=== PATIENT | male | born 1960 | race American Indian/Alaskan Native ===

== ENCOUNTER 2016-07-31 21:12 | Emergency (ER) | payer SELFPAY ==
[2016-07-31 22:08] LABS: Basophils % (Auto) 0.3 % (0.0-1.8); Eosinophils % (Auto) 0.2 % (0.0-4.3); Hemoglobin 12.7 gm/dl (11.8-15.2); Mean Corpuscular HGB Conc 34 % (32-34); Mean Corpuscular Hemoglobin 32 pg (28-32); Mean Corpuscular Volume 95 fl (84-94); Platelet Count 189 K/mm3 (140-440); Red Blood Count 3.91 M/mm3 (3.65-5.03); Red Cell Distribution Width 14.4 % (13.2-15.2)
--- NOTE | 2016-07-31 22:10 | Emergency Department Report ---
Chief Complaint: Abdominal Pain Stated Complaint: ABD PAINS Time Seen by Provider: 07/31/16 22:05 - HPI History of Present Illness: 35-year-old male presents today with upper abdominal pain since Wednesday morning. Positive for nausea and vomiting. Positive for subjective fever. Denies history of similar symptoms. Denies chest pain or shortness of breath. Denies history of gallbladder stones. - ROS Review of Systems: Per HPI - Exam Vital Signs: Vital Signs 07/31/16 21:45 Temperature 98.6 F Pulse Rate 80 Respiratory 22 Rate Blood Pressure 165/106 [Right] O2 Sat by Pulse 100 Oximetry Physical Exam: General: 55-year-old male in no acute distress. Well-developed, well-nourished. CV: Regular rate and rhythm. Lungs: Clear to auscultation bilaterally. Abdomen: Tenderness to palpation of the epigastric region. Positive for minimal guarding. No rebound tenderness. Normal bowel sounds. MSE screening note: Focused history and physical exam performed. Due to findings the following was ordered: ED Disposition for MSE Condition: Stable
[2016-07-31 22:28] LABS: Alanine Aminotransferase 28 units/L (7-56); Albumin 4.1 g/dL (3.9-5); Albumin/Globulin Ratio 1.2 %; Alkaline Phosphatase 82 units/L (35-129); Anion Gap 18 mmol/L; BUN/Creatinine Ratio 11.11; Bilirubin,Total 0.6 mg/dL (0.1-1.2); Blood Urea Nitrogen 10 mg/dL (9-20); Calcium 8.9 mg/dL (8.4-10.2); Carbon Dioxide 25 mmol/L (22-30); Chloride 99.9 mmol/L (98-107); Glucose 96 mg/dL (75-100); Lipase 36 units/L (13-60); Potassium 5.1 mmol/L (3.6-5.0); Sodium 138 mmol/L (137-145); Total Protein 7.6 g/dL (6.3-8.2)
[2016-08-01 01:37] LABS: Bilirubin,Urine NEG (Negative); Blood,Urine NEG (Negative); Ketones,Urine TR mg/dL (Negative); Leukocyte Esterase,Urine NEG (Negative); Mucus,Urine FEW /HPF; Nitrite,Urine NEG (Negative); Protein,Urine <15 mg/dL mg/dL (Negative); Urobilinogen,Urine < 2.0 mg/dL (<2.0)
[2016-08-01] MEDS ORDERED: TYLENOL PO ONE (01:46)
[2016-08-01] MEDS ORDERED: MORPHINE IM ONE (04:31)
[2016-08-01] MEDS ORDERED: MORPHINE ONE (06:34)
[2016-08-01] MEDS ORDERED: PROTONIX IV ONE (06:46)
[2016-08-01] MEDS ORDERED: MORPHINE IV ONE (06:46)
[2016-08-01] MEDS ORDERED: ZOFRAN IV ONE (06:46)
[2016-08-01] MEDS ORDERED: NACL 0.9% 1000 ML 1,000 ML IV ONE (06:47)
[2016-08-01] MEDS ORDERED: NACL ONE (07:10)
--- NOTE | 2016-08-01 07:22 | Emergency Department Report ---
ED Abdominal Pain HPI - General Chief Complaint: Abdominal Pain Stated Complaint: ABD PAINS Time Seen by Provider: 07/31/16 22:05 Source: patient Mode of arrival: Ambulatory Limitations: No Limitations - History of Present Illness Initial Comments: 55 year old male with a past medical history of avascular necrosis and previous hip surgery presents to the hospital complains of upper abdominal pain since yesterday a.m. Epigastric pain described as intermittent and aching. Rated 6/ 10 in intensity currently but was 10/10 upon initial presentation. Positive associated nausea vomiting or by mouth intolerance. No reports of diarrhea, melena, or hematochezia. Patient complains that he did have some red vomit after drinking a red drink but red vomitus continued to the next day. No reports of documented fever, sick contacts or recent travel. Patient's blood pressure noted to be elevated upon presentation. Patient states he was in severe pain at the time he denies a history of hypertension. Patient chronically takes oxycodone 15mg and tramadol 50 mg for hip pain. Patient drinks wine on occasion and denies daily alcohol use. Severity scale (0 -10): 5 - Related Data Previous Rx's Medication Instructions Recorded Last Taken Type Mag Hydrox/Al Hydrox/Simeth 20 ml PO QID PRN #1 bottle 08/01/16 Unknown Rx [Maalox Advanced Suspension] Omeprazole Magnesium [PriLOSEC Otc] 20 mg PO QDAY #30 tablet. 08/01/16 Unknown Rx Ondansetron [Zofran Odt] 4 mg PO Q8HR #20 tab.rapdis 08/01/16 Unknown Rx Oxycodone HCl [Roxicodone TAB] 15 mg PO Q6H PRN #14 tablet 08/01/16 Unknown Rx traMADol [Ultram 50 MG tab] 50 mg PO Q6HR PRN #14 tablet 08/01/16 Unknown Rx Allergies Allergy/AdvReac Type Severity Reaction Status Date / Time No Known Allergies Allergy Verified 07/31/16 21:45 ED Review of Systems ROS: Stated complaint: ABD PAINS Other details as noted in HPI Comment: All other systems reviewed and negative Other: Constitutional: No fevers chills Eyes: No eye pain visual changes ENT: No ear pain or throat pain Neck: Denies pain Respiratory: Denies cough wheezing shortness of breath Cardiovascular: Denies chest pain, palpitations, syncope GI: as per hpi : Denies dysuria, Musculoskeletal: Denies back pain Skin: Denies rash, lesions, erythema Neurologic: Denies headache, numbness, weakness Psychiatric: Denies suicidal ideation, hallucinations ED Past Medical Hx - Past Medical History Previous Medical History?: Yes Additional medical history: Vascular necrosis - Surgical History Past Surgical History?: Yes Additional Surgical History: Bilateral Hip Replacement - Social History Smoking Status: Never Smoker Substance Use Type: None - Medications Home Medications: Home Medications Medication Instructions Recorded Confirmed Last Taken Type Mag Hydrox/Al Hydrox/Simeth 20 ml PO QID PRN #1 bottle 08/01/16 Unknown Rx [Maalox Advanced Suspension] Omeprazole Magnesium [PriLOSEC Otc] 20 mg PO QDAY #30 tablet.dr 08/01/16 Unknown Rx Ondansetron [Zofran Odt] 4 mg PO Q8HR #20 tab.rapdis 08/01/16 Unknown Rx Oxycodone HCl [Roxicodone TAB] 15 mg PO Q6H PRN #14 tablet 08/01/16 Unknown Rx traMADol [Ultram 50 MG tab] 50 mg PO Q6HR PRN #14 tablet 08/01/16 Unknown Rx ED Physical Exam - General Limitations: No Limitations - Other Other exam information: General: No limitations, patient is alert in no acute distress Head exam: Atraumatic, normocephalic Eyes exam: Normal appearance ENT: Moist mucous membrane, normal oropharynx Neck exam: Normal inspection, full range of motion Respiratory exam: Clear to auscultation bilateral, no wheezes, rales, crackles Cardiovascular: Normal rate and rhythm, normal heart sounds Abdomen: Soft, nondistended, mild right upper quadrant tenderness but significant epigastric tenderness, with normal bowel sounds, no rebound, or guarding rectal: guaic pos brown stool. no gross blood or melena Extremity: Full range of motion normal inspection no deformity Back: Normal Inspection, full range of motion, no tenderness Neurologic: Alert, oriented x3, cranial nerves intact, no motor or sensory deficit Psychiatric: normal affect, normal mood Skin: Warm, dry, intact ED Course Vital Signs 07/31/16 08/01/16 08/01/16 21:45 02:46 04:45 Temperature 98.6 F Pulse Rate 80 Respiratory 22 16 20 Rate Blood Pressure 165/106 [Right] O2 Sat by Pulse 100 Oximetry 08/01/16 08/01/16 08/01/16 07:17 07:30 07:47 Temperature Pulse Rate 74 Respiratory 16 16 16 Rate Blood Pressure 136/81 [Right] O2 Sat by Pulse 100 Oximetry 08/01/16 08/01/16 08:22 10:40 Temperature Pulse Rate Respiratory 16 16 Rate Blood Pressure [Right] O2 Sat by Pulse 100 Oximetry - Reevaluation(s) Reevaluation #1: 08/01/16 10:23 Blood pressure corrected without receiving blood pressure medication. Pain somewhat improved with morphine, Protonix, and Zofran. Nausea has resolved. Patient complained of persistent pain and worsened after by mouth intake of crackles. Additional Dilaudid ordered since patient likely has a narcotic tolerance - Consultations Consultation #1: 08/01/16 19:[address] Caldwell with GI regarding CT findings. Patient may follow -up as outpatient ED Medical Decision Making - Lab Data Result diagrams: 07/31/16 21:56 07/31/16 21:56 Lab Results 07/31/16 07/31/16 07/31/16 Range/Units 00:30 21:56 21:56 WBC 7.0 (4.5-11.0) K/mm3 RBC 3.91 (3.65-5.03) M/mm3 Hgb 12.7 (11.8-15.2) gm/dl Hct 37.0 (35.5-45.6) % MCV 95 H (84-94) fl MCH 32 (28-32) pg MCHC 34 (32-34) % RDW 14.4 (13.2-15.2) % Plt Count 189 (140-440) K/mm3 Lymph % (Auto) 13.5 (13.4-35.0) % Price % (Auto) 10.2 H (0.0-7.3) % Eos % (Auto) 0.2 (0.0-4.3) % Baso % (Auto) 0.3 (0.0-1.8) % Lymph # 0.9 L (1.2-5.4) K/mm3 Price # 0.7 (0.0-0.8) K/mm3 Eos # 0.0 (0.0-0.4) K/mm3 Baso # 0.0 (0.0-0.1) K/mm3 Seg Neutrophils % 75.8 H (40.0-70.0) % Seg Neutrophils # 5.3 (1.8-7.7) K/mm3 Sodium 138 (137-145) mmol/L Potassium 5.1 H (3.6-5.0) mmol/L Chloride 99.9 (98-107) mmol/L Carbon Dioxide 25 (22-30) mmol/L Anion Gap 18 mmol/L BUN 10 (9-20) mg/dL Creatinine 0.9 (0.8-1.5) mg/dL Estimated GFR > 60 ml/min BUN/Creatinine Ratio 11.11 % Glucose 96 (75-100) mg/dL Calcium 8.9 (8.4-10.2) mg/dL Total Bilirubin 0.6 (0.1-1.2) mg/dL AST 31 (5-40) units/L ALT 28 (7-56) units/L Alkaline Phosphatase 82 (35-129) units/L Total Protein 7.6 (6.3-8.2) g/dL Albumin 4.1 (3.9-5) g/dL Albumin/Globulin Ratio 1.2 % Amylase (27-131) units/L Lipase 36 (13-60) units/L Urine Color Yellow (Yellow) Urine Turbidity Clear (Clear) Urine pH 5.0 (5.0-7.0) Ur Specific [place] 1.014 (1.003-1.030) Urine Protein <15 mg/dl (Negative) mg/dL Urine Glucose (UA) Neg (Negative) mg/dL Urine Ketones Tr (Negative) mg/dL Urine Blood Neg (Negative) Urine Nitrite Neg (Negative) Urine Bilirubin Neg (Negative) Urine Urobilinogen < 2.0 (<2.0) mg/dL Ur Leukocyte Esterase Neg (Negative) Urine WBC (Auto) 2.0 (0.0-6.0) /HPF Urine RBC (Auto) 4.0 (0.0-6.0) /HPF U Epithel Cells (Auto) < 1.0 (0-13.0) /HPF Urine Mucus Few /HPF 07/31/16 Range/Units 21:56 WBC (4.5-11.0) K/mm3 RBC (3.65-5.03) M/mm3 Hgb (11.8-15.2) gm/dl Hct (35.5-45.6) % MCV (84-94) fl MCH (28-32) pg MCHC (32-34) % RDW (13.2-15.2) % Plt Count (140-440) K/mm3 Lymph % (Auto) (13.4-35.0) % Price % (Auto) (0.0-7.3) % Eos % (Auto) (0.0-4.3) % Baso % (Auto) (0.0-1.8) % Lymph # (1.2-5.4) K/mm3 Price # (0.0-0.8) K/mm3 Eos # (0.0-0.4) K/mm3 Baso # (0.0-0.1) K/mm3 Seg Neutrophils % (40.0-70.0) % Seg Neutrophils # (1.8-7.7) K/mm3 Sodium (137-145) mmol/L Potassium (3.6-5.0) mmol/L Chloride (98-107) mmol/L Carbon Dioxide (22-30) mmol/L Anion Gap mmol/L BUN (9-20) mg/dL Creatinine (0.8-1.5) mg/dL Estimated GFR ml/min BUN/Creatinine Ratio % Glucose (75-100) mg/dL Calcium (8.4-10.2) mg/dL Total Bilirubin (0.1-1.2) mg/dL AST (5-40) units/L ALT (7-56) units/L Alkaline Phosphatase (35-129) units/L Total Protein (6.3-8.2) g/dL Albumin (3.9-5) g/dL Albumin/Globulin Ratio % Amylase 105 (27-131) units/L Lipase (13-60) units/L Urine Color (Yellow) Urine Turbidity (Clear) Urine pH (5.0-7.0) Ur Specific [place] (1.003-1.030) Urine Protein (Negative) mg/dL Urine Glucose (UA) (Negative) mg/dL Urine Ketones (Negative) mg/dL Urine Blood (Negative) Urine Nitrite (Negative) Urine Bilirubin (Negative) Urine Urobilinogen (<2.0) mg/dL Ur Leukocyte Esterase (Negative) Urine WBC (Auto) (0.0-6.0) /HPF Urine RBC (Auto) (0.0-6.0) /HPF U Epithel Cells (Auto) (0-13.0) /HPF Urine Mucus /HPF - Radiology Data Radiology results: report reviewed (CT abdomen and pelvis IV contrast: U acute pathology. Question of funds at the pancreatic head. Slight thickening of the distal descending duodenum.) - Medical Decision Making Pain improved at the medicines in the ED the patient feels well enough to go home. Patient requesting a refill on his oxycodone and tramadol since he will run out prior to this pain management follow-up on the - Differential Diagnosis gastritis, cholecystitis, pancreatitis, hepatitis Critical Care Time: No Critical care attestation.: If time is entered above; I have spent that time in minutes in the direct care of this critically ill patient, excluding procedure time. ED Disposition Clinical Impression: Gastritis Qualifiers: Gastritis type: unspecified gastritis Vomiting Qualifiers: Vomiting type: unspecified Vomiting Intractability: non-intractable Nausea presence: with nausea Qualified Code(s): R11.2 - Nausea with vomiting, unspecified Disposition: DISCHARGED TO HOME OR SELFCARE Is pt being admited?: No Does the pt Need Aspirin: No Condition: Stable Instructions: Gastritis (ED), Acute Nausea and Vomiting (ED) Additional Instructions: Follow-up with the GI doctor and your primary care doctor. There were several incidental findings identified on the CAT scan any further workup and evaluation. You had been provided a copy of the CAT scan for your follow-up doctors to review. Take the medication as prescribed. Return if symptoms worsen despite current medication treatment. Prescriptions: Mag Hydrox/Al Hydrox/Simeth [Maalox Advanced Suspension] 20 ml PO QID PRN #1 bottle PRN Reason: Indigestion Omeprazole Magnesium [PriLOSEC Otc] 20 mg PO QDAY #30 tablet. Ondansetron [Zofran Odt] 4 mg PO Q8HR #20 tab.rapdis Oxycodone HCl [Roxicodone TAB] 15 mg PO Q6H PRN #14 tablet PRN Reason: Pain traMADol [Ultram 50 MG tab] 50 mg PO Q6HR PRN #14 tablet PRN Reason: Pain Referrals: MARCELLUS NOBLE MD [Primary Care Provider] - 2-3 Days KELSEA CALDWELL MD [Staff Physician] - 2-3 Days Time of Disposition: 11:47
--- NOTE | 2016-08-01 08:49 | Cat Scan Report ---
FINAL REPORT PROCEDURE: CT ABDOMEN PELVIS W CON TECHNIQUE: Computerized axial tomography of the abdomen and pelvis was performed after the IV injection of iodinated nonionic contrast. HISTORY: epigastric pain, vomiting COMPARISON: No prior studies are available for comparison. FINDINGS: Visualized lower thorax: No significant abnormality on limited evaluation with motion artifact present. Liver: Normal size and attenuation. Spleen: Normal size and attenuation. Gallbladder and biliary system: Possible sludge material or gallstone debris versus artifact. Consider gallbladder ultrasound. Coronal 44. Pancreas: Pancreatic duct measuring up to 3 millimeters. Slight heterogeneous appearance of the pancreatic head versus artifact axial 61 and 62 in the 1 x 1 centimeter range, indeterminate and does not appear to persist on delayed sequences. Pancreatic head measures 2.6 by 3.6 x 3.9 centimeters. Followup and further workup may be warranted. Although not favored pancreatic head mass not excludable. Pancreatic head infiltrative pathology not excludable at this time. Short-term Followup and further workup suggested as indicated Adrenals: Normal. Kidneys: Low attenuated cysts in the sub centimeter range each kidney suspected which can be confirmed by ultrasound if warranted. Contrast fills the collecting systems and visualized ureters with probable bilateral ureteral jets. GI tract: No oral contrast. Scattered stool density. Normal caliber appendix axial 121 in the 6 millimeter range. Stomach is decompressed. Examination limited by lack of oral contrast. Scattered small bowel loops in the 2-2.5 centimeter range. Slight indeterminate thickening of the distal descending colon with wall in the 7 millimeter range could be pathologic or fortuitous. Followup oral contrast may be warranted. Lymph nodes and mesentery: Normal. Vasculature: Normal. Bladder: Bladder appears distended. Mid and lower bladder obscured by artifacts. There appears to be a 2.5 x 2.5 centimeter area posterior to the bladder which fills with contrast on delayed images consistent with cystocele. Examination indeterminate due to extensive artifacts related to bilateral hip prostheses. Reproductive organs: Indeterminate visualization of prostate. Peritoneum: No free fluid. Musculoskeletal structures: Bilateral hip prostheses with associated artifacts obscuring pelvic anatomy evaluation. Other: Moderate broad disc bulge L3-4 L4-5 L5-S1. Multilevel facet arthropathy.. IMPRESSION: No acute abdominal pelvic pathology seen at this time Questionable findings of the pancreas as described. Followup and further workup suggested. Slight thickening of the distal descending duodenum, indeterminate Exam limited by metallic bilateral hip prosthesis related artifacts Exam limited by lack of oral contrast Details above If symptoms and or concern persists followup is advised as indicated
[2016-08-01] MEDS ORDERED: DILAUDID IV ONE (10:22)
[2016-08-01 12:46] VITALS: BP 123/64
== END 2016-08-01 11:49 | disposition home or self-care (01) ==
LOC: ED 21:12
DX: K29.70 Gastritis, unspecified, without bleeding (principal)
CPT/HCPCS: 36415; 74177; 80053; 81001; 82150; 82271; 83690; 85025; 96361; 96372; 96374; 96375; 99284; C9113; J1170; J2270; J2405; J7030; Q9967

== ENCOUNTER 2016-10-06 11:23 | Emergency (ER) | payer MEDICAID | END 2016-10-06 11:30 | disposition left against medical advice (07) | LOC: ED 11:23 | DX: S09.93XA Unspecified injury of face, initial encounter (principal); Z53.21 Procedure and treatment not carried out due to patient leaving prior to being seen by health care provider; X58.XXXA Exposure to other specified factors, initial encounter; Y93.89 Activity, other specified; Y92.89 Other specified places as the place of occurrence of the external cause; Y99.8 Other external cause status ==

== ENCOUNTER 2016-11-09 10:53 | Emergency (ER) | payer MEDICAID ==
--- NOTE | 2016-11-09 11:14 | Emergency Department Report ---
Chief Complaint: Urogenital-Male Stated Complaint: UNABLE TO URINATE Time Seen by Provider: 11/09/16 11:11 - HPI History of Present Illness: PT states he can not urinate. PT states when he has the urge to urinate, the urine only trickles out. PT states his urine is darker than normal. + dysuria. PT states he has these symptoms for 2.5 weeks. gradually worsened - ROS Review of Systems: -fever - chills + dysuria - Exam Physical Exam: pt looks well, non toxic steady gait No CVA tenderness [place] MSE screening note: Focused history and physical exam performed. Due to findings the following was ordered: labs ED Disposition for MSE Condition: Stable
[2016-11-09 11:55] LABS: Basophils % (Auto) 0.4 % (0.0-1.8); Eosinophils % (Auto) 0.2 % (0.0-4.3); Hemoglobin 13.4 gm/dl (11.8-15.2); Mean Corpuscular HGB Conc 34 % (32-34); Mean Corpuscular Hemoglobin 32 pg (28-32); Mean Corpuscular Volume 94 fl (84-94); Platelet Count 180 K/mm3 (140-440); Red Blood Count 4.25 M/mm3 (3.65-5.03); Red Cell Distribution Width 13.8 % (13.2-15.2); White Blood Count 7.4 K/mm3 (4.5-11.0)
[2016-11-09 11:59] LABS: Anion Gap 16 mmol/L; Blood Urea Nitrogen 12 mg/dL (9-20); Calcium 9.2 mg/dL (8.4-10.2); Carbon Dioxide 26 mmol/L (22-30); Glucose 93 mg/dL (75-100); Potassium 4.2 mmol/L (3.6-5.0); Sodium 139 mmol/L (137-145)
[2016-11-09 12:13] LABS: Bilirubin,Urine NEG (Negative); Blood,Urine MOD (Negative); Ketones,Urine TR mg/dL (Negative); Leukocyte Esterase,Urine LG (Negative); Nitrite,Urine NEG (Negative); Urobilinogen,Urine < 2.0 mg/dL (<2.0)
[2016-11-09 12:31] LABS: WBC,Urine > 182.0 /HPF (0.0-6.0)
[2016-11-09] MEDS ORDERED: NORCO 5/325 ONE (18:39)
[2016-11-09] MEDS ORDERED: NORCO 5/325 PO ONE (19:02)
[2016-11-09] MEDS ORDERED: NACL 0.9% 500 ML 500 ML IV ONE (19:51)
[2016-11-09 20:18] LABS: Basophils % (Auto) 0.2 % (0.0-1.8); Eosinophils % (Auto) 0.3 % (0.0-4.3); Hematocrit 39.2 % (35.5-45.6); Hemoglobin 13.2 gm/dl (11.8-15.2); Mean Corpuscular HGB Conc 34 % (32-34); Mean Corpuscular Hemoglobin 32 pg (28-32); Mean Corpuscular Volume 94 fl (84-94); Platelet Count 170 K/mm3 (140-440); Red Blood Count 4.17 M/mm3 (3.65-5.03); Red Cell Distribution Width 13.8 % (13.2-15.2); White Blood Count 6.8 K/mm3 (4.5-11.0)
[2016-11-09 20:31] LABS: Anion Gap 18 mmol/L; BUN/Creatinine Ratio 14.44; Blood Urea Nitrogen 13 mg/dL (9-20); Calcium 9.2 mg/dL (8.4-10.2); Carbon Dioxide 24 mmol/L (22-30); Chloride 99.8 mmol/L (98-107); Glucose 104 mg/dL (75-100); Potassium 4.2 mmol/L (3.6-5.0); Sodium 138 mmol/L (137-145)
--- NOTE | 2016-11-09 23:30 | Emergency Department Report ---
ED Male HPI - General Chief complaint: Urogenital-Male Stated complaint: UNABLE TO URINATE Time Seen by Provider: 11/09/16 11:11 Source: patient Mode of arrival: Ambulatory Limitations: No Limitations - History of Present Illness MD Complaint: dysuria -: Gradual Location: left testicle, left inguinal region Severity scale (0 -10): 3 Quality: aching Consistency: now resolved Improves with: none Worsens with: none denies: discharge, swelling, mass, rash, urinary retention, blood in urine, dysuria, fever, nausea/vomiting - Related Data Sexually active: No Previous Rx's Medication Instructions Recorded Last Taken Type Mag Hydrox/Al Hydrox/Simeth 20 ml PO QID PRN #1 bottle 08/01/16 Unknown Rx [Maalox Advanced Suspension] Omeprazole Magnesium [PriLOSEC Otc] 20 mg PO QDAY #30 tablet. 08/01/16 Unknown Rx traMADol [Ultram 50 MG tab] 50 mg PO Q6HR PRN #14 tablet 08/01/16 Unknown Rx Ondansetron [Zofran ODT TAB] 4 mg PO Q8HR #20 tab.rapdis 11/09/16 Unknown Rx Oxycodone HCl [Roxicodone TAB] 15 mg PO BID PRN #10 tablet 11/09/16 Unknown Rx Allergies Allergy/AdvReac Type Severity Reaction Status Date / Time No Known Allergies Allergy Verified 07/31/16 21:45 ED Review of Systems ROS: Stated complaint: UNABLE TO URINATE Other details as noted in HPI Comment: All other systems reviewed and negative ED Past Medical Hx - Past Medical History Previous Medical History?: Yes Additional medical history: Vascular necrosis - Surgical History Past Surgical History?: Yes Additional Surgical History: Bilateral Hip Replacement - Social History Smoking Status: Current Every Day Smoker Substance Use Type: Alcohol - Medications Home Medications: Home Medications Medication Instructions Recorded Confirmed Last Taken Type Mag Hydrox/Al Hydrox/Simeth 20 ml PO QID PRN #1 bottle 08/01/16 Unknown Rx [Maalox Advanced Suspension] Omeprazole Magnesium [PriLOSEC Otc] 20 mg PO QDAY #30 tablet. 08/01/16 Unknown Rx traMADol [Ultram 50 MG tab] 50 mg PO Q6HR PRN #14 tablet 08/01/16 Unknown Rx Ondansetron [Zofran ODT TAB] 4 mg PO Q8HR #20 tab.rapdis 11/09/16 Unknown Rx Oxycodone HCl [Roxicodone TAB] 15 mg PO BID PRN #10 tablet 11/09/16 Unknown Rx ED Physical Exam - General Limitations: No Limitations General appearance: alert, in no apparent distress - Head Head exam: Present: atraumatic, normocephalic - Eye Eye exam: Present: normal appearance - ENT ENT exam: Present: normal exam, mucous membranes moist - Neck Neck exam: Present: normal inspection - Respiratory Respiratory exam: Present: normal lung sounds bilaterally. Absent: respiratory distress - Cardiovascular Cardiovascular Exam: Present: regular rate, normal rhythm. Absent: systolic murmur, diastolic murmur, rubs, gallop - GI/Abdominal GI/Abdominal exam: Present: soft, normal bowel sounds - Rectal Rectal exam: Present: deferred - Extremities Exam Extremities exam: Present: normal inspection - Back Exam Back exam: Present: normal inspection - Neurological Exam Neurological exam: Present: alert, oriented X3 - Psychiatric Psychiatric exam: Present: normal affect, normal mood - Skin Skin exam: Present: warm, dry, intact, normal color. Absent: rash ED Course Vital Signs 11/09/16 11/09/16 11/09/16 11:11 18:11 18:21 Temperature 98.5 F 98.3 F Pulse Rate 77 57 L Respiratory 16 20 18 Rate Blood Pressure 151/109 Blood Pressure 151/100 [Left] O2 Sat by Pulse 100 97 Oximetry 11/09/16 22:12 Temperature Pulse Rate 70 Respiratory 15 Rate Blood Pressure Blood Pressure 178/98 [Left] O2 Sat by Pulse 100 Oximetry ED Medical Decision Making - Lab Data Result diagrams: 11/09/16 19:59 11/09/16 19:59 Critical care attestation.: If time is entered above; I have spent that time in minutes in the direct care of this critically ill patient, excluding procedure time. ED Disposition Clinical Impression: Wrist fracture, right Disposition: DC-01 TO HOME OR SELFCARE Is pt being admited?: No Does the pt Need Aspirin: No Condition: Good Prescriptions: Ondansetron [Zofran ODT TAB] 4 mg PO Q8HR #20 tab.rapdis Oxycodone HCl [Roxicodone TAB] 15 mg PO BID PRN #10 tablet PRN Reason: Pain Referrals: PRIMARY CARE, [Primary Care Provider] - 3-5 Days PRABHA VASQUEZ MD [Staff Physician] - 3-5 Days Time of Disposition: 23:31
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
[2016-11-10 01:14] VITALS: BP 164/98
== END 2016-11-10 00:25 | disposition home or self-care (01) ==
LOC: ED 10:53
DX: S62.101A Fracture of unspecified carpal bone, right wrist, initial encounter for closed fracture (principal); R30.0 Dysuria; F17.200 Nicotine dependence, unspecified, uncomplicated; X58.XXXA Exposure to other specified factors, initial encounter; Y93.89 Activity, other specified; Y99.8 Other external cause status; Y92.89 Other specified places as the place of occurrence of the external cause
CPT/HCPCS: 36415; 51702; 80048; 81001; 85025; 87086; 96360; 99283; J7040

== ENCOUNTER 2017-06-17 22:02 | Emergency (ER) | payer MEDICAID ==
[2017-06-17] MEDS ORDERED: NACL 0.9% 500 ML 500 ML IV ONE (22:21)
--- NOTE | 2017-06-17 23:15 | XRay Report ---
FINAL REPORT EXAM: XR CHEST 1V AP HISTORY: possible Sepsis TECHNIQUE: upright single view chest PRIORS: None. FINDINGS: Cardiac and mediastinal contours are unremarkable. No focal pulmonary infiltrate is identified. No pleural fluid collection seen. Pulmonary vasculature is unremarkable. IMPRESSION: Negative single-view chest
[2017-06-17 23:36] LABS: Basophils % (Auto) 0.2 % (0.0-1.8); Eosinophils % (Auto) 0.1 % (0.0-4.3); Hematocrit 32.4 % (35.5-45.6); Hemoglobin 11.4 gm/dl (11.8-15.2); Lymphocytes # (Auto) 0.6 K/mm3 (1.2-5.4); Lymphocytes % (Auto) 9.8 % (13.4-35.0); Mean Corpuscular HGB Conc 35 % (32-34); Mean Corpuscular Hemoglobin 33 pg (28-32); Mean Corpuscular Volume 94 fl (84-94); Monocytes # (Auto) 0.4 K/mm3 (0.0-0.8); Monocytes % (Auto) 6.4 % (0.0-7.3); Platelet Count 195 K/mm3 (140-440); Red Blood Count 3.44 M/mm3 (3.65-5.03); Red Cell Distribution Width 13.4 % (13.2-15.2)
[2017-06-17 23:47] LABS: INR 0.95 (0.87-1.13)
[2017-06-17 23:56] LABS: Alanine Aminotransferase 15 units/L (7-56); Albumin 3.4 g/dL (3.9-5); BUN/Creatinine Ratio 14; Blood Urea Nitrogen 13 mg/dL (9-20); Calcium 8.1 mg/dL (8.4-10.2); Hemolysis Index 4
[2017-06-17] MEDS ORDERED: TYLENOL PO ONE (23:57)
[2017-06-17] MEDS ORDERED: TORADOL IV ONE (23:57)
[2017-06-17] MEDS ORDERED: NACL 0.9% 1000 ML 1,000 ML IV ONE (23:57)
[2017-06-17] MEDS ORDERED: NORCO 5/325 PO ONE (23:57)
[2017-06-17] MEDS ORDERED: ROCEPHIN/NS 1 GM/50 ML 1 GM/50 ML BAG IV ONE (23:58)
[2017-06-18] MEDS ORDERED: cefTRIAXone 1 GM in NACL 0.9% 20 ML IV ONE
[2017-06-18 00:30] LABS: Bacteria,Urine 1+ /HPF (Negative); Bilirubin,Urine NEG (Negative); Blood,Urine MOD (Negative); Color,Urine Yellow (Yellow); Mucus,Urine FEW /HPF; Nitrite,Urine NEG (Negative); Protein,Urine <15 mg/dL mg/dL (Negative); Urobilinogen,Urine < 2.0 mg/dL (<2.0)
[2017-06-18] MEDS ORDERED: ZITHROMAX PO ONE (01:10)
--- NOTE | 2017-06-18 01:13 | Emergency Department Report ---
ED Fever HPI - General Chief Complaint: Fever Stated Complaint: FEVER Time Seen by Provider: 06/17/17 22:15 Source: patient Exam Limitations: no limitations - History of Present Illness Initial Comments: 56-year-old male the past medical history avascular necrosis and bilateral hip replacements presents to the hospital complaining of dysuria hematuria distantly as night. Symptoms started after sexual intercourse. Patient because grossly bloody urine with clot that has now turned pink. Positive pain with urination. Some mild straining reported. Positive fever. No nausea, vomiting, blurred, or per history of previous prostate problems. Patient is having unprotected sex with a regular sexual partner ED Review of Systems ROS: Stated complaint: FEVER Other details as noted in HPI Comment: All other systems reviewed and negative Other: Constitutional: As per HPI Eyes: No eye pain visual changes or discharge ENT: No ear pain or throat pain Neck: Denies pain Respiratory: Denies cough wheezing shortness of breath Cardiovascular: Denies chest pain, palpitations, syncope GI: Denies abdominal pain, nausea, vomiting, diarrhea : as per hpi Musculoskeletal: Denies back pain Skin: Denies rash, lesions, erythema Neurologic: Denies headache, numbness, weakness Psychiatric: Denies suicidal ideation, hallucinations ED Past Medical Hx - Past Medical History Previous Medical History?: Yes Additional medical history: Vascular necrosis - Surgical History Past Surgical History?: Yes Additional Surgical History: Bilateral Hip Replacement - Social History Smoking Status: Current Every Day Smoker Substance Use Type: None - Medications Home Medications: Home Medications Medication Instructions Recorded Confirmed Last Taken Type Mag Hydrox/Aluminum Hyd/Simeth 20 ml PO QID PRN #1 bottle 08/01/16 Unknown Rx [Maalox Advanced Suspension] Omeprazole Magnesium [PriLOSEC Otc] 20 mg PO QDAY #30 tablet. 08/01/16 Unknown Rx traMADol [Ultram 50 MG tab] 50 mg PO Q6HR PRN #14 tablet 08/01/16 Unknown Rx Ondansetron [Zofran ODT TAB] 4 mg PO Q8HR #20 tab.rapdis 11/09/16 Unknown Rx Oxycodone HCl [Roxicodone TAB] 15 mg PO BID PRN #10 tablet 11/09/16 Unknown Rx Sulfamethoxazole/Trimethoprim 1 each PO BID #20 tablet 11/10/16 Unknown Rx [Bactrim DS TAB] HYDROcodone/APAP 5-325 [Bent 1 each PO Q6HR PRN #20 tablet 06/18/17 Unknown Rx 5/325] Ibuprofen [Motrin] 800 mg PO Q8HR PRN #30 tablet 06/18/17 Unknown Rx Nitrofurantoin Morris/M-Cryst 100 mg PO Q12HR #14 capsule 06/18/17 Unknown Rx [Macrobid CAP] ED Physical Exam - General Limitations: No Limitations - Other Other exam information: General: No limitations, patient is alert in no acute distress Head exam: Atraumatic, normocephalic Eyes exam: Normal appearance ENT: Moist mucous membrane, normal oropharynx Neck exam: Normal inspection, full range of motion, no meningismus nontender Respiratory exam: Clear to auscultation bilateral, no wheezes, rales, crackles Cardiovascular: Normal rate and rhythm, normal heart sounds Abdomen: Soft, nondistended, and nontender, with normal bowel sounds, no rebound, or guarding : Circumcised, no penile discharge, no testicular pain or swelling. No penile lesions. Extremity: Full range of motion normal inspection no deformity Back: Normal Inspection, full range of motion, no tenderness Neurologic: Alert, oriented x3, cranial nerves intact, no motor or sensory deficit Psychiatric: normal affect, normal mood Skin: Warm, dry, intact ED Course Vital Signs 06/17/17 06/18/17 06/18/17 22:12 00:19 00:20 Temperature 101.7 F H Pulse Rate 99 H Respiratory 16 16 16 Rate Blood Pressure 138/81 Blood Pressure 138/81 [Left] O2 Sat by Pulse 98 Oximetry 06/18/17 06/18/17 06/18/17 00:49 01:02 01:05 Temperature Pulse Rate Respiratory 16 16 16 Rate Blood Pressure Blood Pressure [Left] O2 Sat by Pulse 99 Oximetry - Reevaluation(s) Reevaluation #1: 06/18/17 01:15 pt feeling better with meds ED Medical Decision Making - Lab Data Result diagrams: 06/17/17 23:12 06/17/17 23:12 Lab Results 06/17/17 06/17/17 06/17/17 Range/Units 23:12 23:12 23:12 WBC 6.0 (4.5-11.0) K/mm3 RBC 3.44 L (3.65-5.03) M/mm3 Hgb 11.4 L (11.8-15.2) gm/dl Hct 32.4 L (35.5-45.6) % MCV 94 (84-94) fl MCH 33 H (28-32) pg MCHC 35 H (32-34) % RDW 13.4 (13.2-15.2) % Plt Count 195 (140-440) K/mm3 Lymph % (Auto) 9.8 L (13.4-35.0) % Morris % (Auto) 6.4 (0.0-7.3) % Eos % (Auto) 0.1 (0.0-4.3) % Baso % (Auto) 0.2 (0.0-1.8) % Lymph # 0.6 L (1.2-5.4) K/mm3 Morris # 0.4 (0.0-0.8) K/mm3 Eos # 0.0 (0.0-0.4) K/mm3 Baso # 0.0 (0.0-0.1) K/mm3 Seg Neutrophils % 83.5 H (40.0-70.0) % Seg Neutrophils # 5.0 (1.8-7.7) K/mm3 PT 13.1 (12.2-14.9) Sec. INR 0.95 (0.87-1.13) Sodium 137 (137-145) mmol/L Potassium 3.7 (3.6-5.0) mmol/L Chloride 99.1 (98-107) mmol/L Carbon Dioxide 22 (22-30) mmol/L Anion Gap 20 mmol/L BUN 13 (9-20) mg/dL Creatinine 0.9 (0.8-1.5) mg/dL Estimated GFR > 60 ml/min BUN/Creatinine Ratio 14 % Glucose 104 H (75-100) mg/dL Lactic Acid (0.7-2.0) mmol/L Calcium 8.1 L (8.4-10.2) mg/dL Total Bilirubin 0.20 (0.1-1.2) mg/dL AST 32 (5-40) units/L ALT 15 (7-56) units/L Alkaline Phosphatase 64 (35-129) units/L Total Protein 6.2 L (6.3-8.2) g/dL Albumin 3.4 L (3.9-5) g/dL Albumin/Globulin Ratio 1.2 % Urine Color (Yellow) Urine Turbidity (Clear) Urine pH (5.0-7.0) Ur Specific Lyman (1.003-1.030) Urine Protein (Negative) mg/dL Urine Glucose (UA) (Negative) mg/dL Urine Ketones (Negative) mg/dL Urine Blood (Negative) Urine Nitrite (Negative) Urine Bilirubin (Negative) Urine Urobilinogen (<2.0) mg/dL Ur Leukocyte Esterase (Negative) Urine WBC (Auto) (0.0-6.0) /HPF Urine RBC (Auto) (0.0-6.0) /HPF U Epithel Cells (Auto) (0-13.0) /HPF Urine Bacteria (Auto) (Negative) /HPF Urine Mucus /HPF Urine Yeast (Budding) /HPF 06/17/17 06/17/17 Range/Units 23:12 23:15 WBC (4.5-11.0) K/mm3 RBC (3.65-5.03) M/mm3 Hgb (11.8-15.2) gm/dl Hct (35.5-45.6) % MCV (84-94) fl MCH (28-32) pg MCHC (32-34) % RDW (13.2-15.2) % Plt Count (140-440) K/mm3 Lymph % (Auto) (13.4-35.0) % Morris % (Auto) (0.0-7.3) % Eos % (Auto) (0.0-4.3) % Baso % (Auto) (0.0-1.8) % Lymph # (1.2-5.4) K/mm3 Morris # (0.0-0.8) K/mm3 Eos # (0.0-0.4) K/mm3 Baso # (0.0-0.1) K/mm3 Seg Neutrophils % (40.0-70.0) % Seg Neutrophils # (1.8-7.7) K/mm3 PT (12.2-14.9) Sec. INR (0.87-1.13) Sodium (137-145) mmol/L Potassium (3.6-5.0) mmol/L Chloride (98-107) mmol/L Carbon Dioxide (22-30) mmol/L Anion Gap mmol/L BUN (9-20) mg/dL Creatinine (0.8-1.5) mg/dL Estimated GFR ml/min BUN/Creatinine Ratio % Glucose (75-100) mg/dL Lactic Acid 1.50 (0.7-2.0) mmol/L Calcium (8.4-10.2) mg/dL Total Bilirubin (0.1-1.2) mg/dL AST (5-40) units/L ALT (7-56) units/L Alkaline Phosphatase (35-129) units/L Total Protein (6.3-8.2) g/dL Albumin (3.9-5) g/dL Albumin/Globulin Ratio % Urine Color Yellow (Yellow) Urine Turbidity Slightly cloudy (Clear) Urine pH 5.0 (5.0-7.0) Ur Specific Lyman 1.011 (1.003-1.030) Urine Protein <15 mg/dl (Negative) mg/dL Urine Glucose (UA) Neg (Negative) mg/dL Urine Ketones Neg (Negative) mg/dL Urine Blood Mod (Negative) Urine Nitrite Neg (Negative) Urine Bilirubin Neg (Negative) Urine Urobilinogen < 2.0 (<2.0) mg/dL Ur Leukocyte Esterase Lg (Negative) Urine WBC (Auto) 87.0 H (0.0-6.0) /HPF Urine RBC (Auto) 16.0 (0.0-6.0) /HPF U Epithel Cells (Auto) 1.0 (0-13.0) /HPF Urine Bacteria (Auto) 1+ (Negative) /HPF Urine Mucus Few /HPF Urine Yeast (Budding) 2+ /HPF - Medical Decision Making UTI Patient able to urinate without signs of obstruction Urine yellow in the ED without gross hematuria UA positive for infection, culture pending Gonorrhea and Chlamydia cultures sent via urine Patient treated with 1 g IV Rocephin Azithromycin 1 g by mouth 1 Will be discharged on UTI antibiotics, pain medication, and fever control - Differential Diagnosis UTI, renal colic, cystitis, prostatitis Critical Care Time: No Critical care attestation.: If time is entered above; I have spent that time in minutes in the direct care of this critically ill patient, excluding procedure time. ED Disposition Clinical Impression: UTI (urinary tract infection) Disposition: TO HOME OR SELFCARE Is pt being admited?: No Does the pt Need Aspirin: No Condition: Stable Instructions: Urinary Tract Infection in Women (ED) Additional Instructions: Take the medication as prescribed. Follow-up with your doctor or the doctor/ clinic provided. Return if symptoms worsen as indicated by your discharge instructions. Your gonorrhea and chlamydia tests are pending and take approximately 3-4 days result. You may obtain results in medical records with a photo ID. You may also obtain results through the follow-up doctor office via medical record request. Prescriptions: HYDROcodone/APAP 5-325 [Bent 5/325] 1 each PO Q6HR PRN #20 tablet PRN Reason: Pain Ibuprofen [Motrin] 800 mg PO Q8HR PRN #30 tablet PRN Reason: Pain Nitrofurantoin Morris/M-Cryst [Macrobid CAP] 100 mg PO Q12HR #14 capsule Referrals: FATIMAH LAMBERT MD [Primary Care Provider] - 3-5 Days [facility] [Provider Group] - 3-5 Days Time of Disposition: 01:14
[2017-06-18 01:40] VITALS: BP 126/80
== END 2017-06-18 02:47 | disposition home or self-care (01) ==
LOC: ED 22:02
DX: N39.0 Urinary tract infection, site not specified (principal); F17.200 Nicotine dependence, unspecified, uncomplicated
CPT/HCPCS: 36415; 71045; 80053; 81001; 82140; 85025; 85610; 87040; 87086; 87591; 93005; 93010; 96374; 96375; 99285; J0696; J1885; J7030; J7040

== ENCOUNTER 2020-11-15 14:14 | Outpatient (CLI) | payer OTHER ==
--- NOTE | 2020-11-15 15:40 | XRay Report ---
BILATERAL STANDING KNEE RADIOGRAPHS 2 VIEWS INDICATION / CLINICAL INFORMATION: BILATERAL KNEE PAIN COMPARISON: None available. FINDINGS: BONES / JOINT(S): No acute fracture or subluxation. There is mild narrowing of the medial compartment s of both the right and left knee. SOFT TISSUES: No significant abnormality. ADDITIONAL FINDINGS: None. Signer Name: Wade Lopez MD Signed: 11/15/2020 3:35 PM Workstation Name: [email or web address]
== END 2020-11-15 14:15 | disposition home or self-care (01) ==
LOC: XRAY 14:14
PROVIDERS: ATTEND Internal Medicine
DX: M17.0 Bilateral primary osteoarthritis of knee (principal)
CPT/HCPCS: 73565